=== PATIENT | male | born 1995 | race Hispanic/Latino ===

== ENCOUNTER → 2021-04-25 17:49 | Outpatient (CLI) | payer OTHER, SELFPAY ==
--- NOTE | 2021-04-25 17:53 | DI.MRI.S_ITS ---
PROCEDURE: MR ANKLE RT WO CON INDICATIONS: RIGHT ANKLE PAIN TECHNIQUE: Noncontrast sagittal T1 spin echo and T2 fast spin echo with fat saturation, axial proton density fast spin echo and T2 fast spin echo with fat saturation, coronal T1 spin echo and T2 fast spin echo with fat saturation through the ankle/hindfoot. COMPARISON: None. FINDINGS: Image quality: Excellent. Bones and joints: No bone marrow contusions or fractures. No hindfoot coalitions. No osteochondral injuries of the talar dome. A small tibiotalar joint effusion. Delete Medial structures: The posterior tibialis, flexor digitorum longus, and flexor hallucis longus tendons are intact. The posterior tibial neurovascular bundle appears normal within the tarsal tunnel, without extrinsic mass effect. The deltoid ligament is intact. The spring ligament is intact. Lateral structures: The anterior talofibular, calcaneofibular, and posterior talofibular ligaments appear intact. More superiorly, the anterior and posterior tibiofibular ligaments appear intact. The tibiofibular syndesmosis is normal in width at 2 mm or less. The peroneus longus and brevis tendons demonstrate normal location. Small amount of fluid lateral to the peroneal longus tendon and the distal portion, which may reflect developing tenosynovitis. The sinus tarsi demonstrates normal fatty signal, without edema, fibrosis, or cyst formation. The calcaneonavicular and calcaneocuboid components of the bifurcate ligament appear intact. T2 hyperintense signal in the expected location of the 3rd cuneometatarsal interosseous ligament, which may reflect disruption/injury. Anterior structures: The tibialis anterior, extensor hallucis longus, and extensor digitorum longus tendons appear intact. Posterior and plantar structures: Achilles tendon is intact. No substantial thickening or tear of the plantar fascia. No abductor digiti quinti muscle atrophy to suggest [place] neuropathy. IMPRESSION: 1. Small tibiotalar joint effusion. 2. Small amount of fluid lateral to the peroneal longus tendon in the distal portion, which may reflect developing tenosynovitis. 3. Disruption of the 3rd cuneometatarsal interosseous ligament. Dictated by: Hal Morocho M.D. on 04/26/2021 at 8:21 Approved by: Hal Morocho M.D. on 04/26/2021 at 9:01
== END ==
PROVIDERS: Referring Provider Podiatrist; Visit Provider Podiatrist
DX: M79.671 Pain in right foot (principal); M76.821 Posterior tibial tendinitis, right leg; R26.2 Difficulty in walking, not elsewhere classified; M25.474 Effusion, right foot; S93.691A Other sprain of right foot, initial encounter
CPT/HCPCS: 73721